=== PATIENT | male | born 1940 | race Caucasian/White ===

== ENCOUNTER 2017-08-28 22:05 | Emergency (ER) | payer MEDICARE, BC, OTHER ==
[2017-08-28 23:26] LABS: ADD MAN DIFF? NO
[2017-08-28 23:29] LABS: BASOPHILS % 0.2 % (0.0-2.0); EOSINOPHILS # 0.1 10^3/ul (0.0-0.5); EOSINOPHILS % 1.6 % (0.0-7.0); HEMATOCRIT 45.9 % (42.0-52.0); HEMOGLOBIN 15.6 g/dl (14.0-18.0); LYMPHOCYTES # 1.2 10^3/ul (0.8-2.9); LYMPHOCYTES % 15.1 % (15.0-51.0); MEAN CORPUSCULAR HEMOGLOBIN 29.5 pg (29.0-33.0); MEAN CORPUSCULAR VOLUME 86.9 fl (82.0-101.0); MEAN PLATELET VOLUME 10.6 fl (7.4-10.4); MONOCYTE # 0.7 10^3/ul (0.3-0.9); MONOCYTES % 8.5 % (0.0-11.0); NEUTROPHILS % 74.1 % (39.0-77.0); PLATELET COUNT 223 10^3/UL (140-415); RED BLOOD COUNT 5.28 10^6/ul (4.70-6.10); RED CELL DISTRIBUTION WIDTH 14.8 % (11.5-14.5)
[2017-08-28 23:29] LABS: WHITE BLOOD COUNT 8.1 10^3/ul (4.8-10.8)
[2017-08-28] MEDS: morphine 4 MG/ML VIAL IV (23:37)
[2017-08-28] MEDS: ONDANSETRON 4 MG INJ IV (23:37)
[2017-08-28] MEDS: SOD CHLORIDE 0.9% 1,000 ML IV (23:37)
[2017-08-28 23:57] LABS: ALANINE AMINOTRANSFERASE 41 IU/L (13-69); ALBUMIN 4.4 g/dl (3.3-4.9); ALBUMIN/GLOBULIN RATIO 1.41; ALKALINE PHOSPHATASE 60 IU/L (42-121); ANION GAP 15 (8-16); ASPARTATE AMINO TRANSFERASE 35 IU/L (15-46); BILIRUBIN,INDIRECT 0.8 mg/dl (0-1.1); BILIRUBIN,TOTAL 0.8 mg/dl (0.2-1.3); BLOOD UREA NITROGEN 20 mg/dl (7-20); CALCIUM 9.1 mg/dl (8.4-10.2); CARBON DIOXIDE 26 mmol/L (21-31); CHLORIDE 105 mmol/L (97-110); CREATININE 1.21 mg/dl (0.61-1.24); GLUCOSE 119 mg/dl (70-220); LIPASE 42 U/L (23-300); SODIUM 142 mmol/L (135-144); TOTAL PROTEIN 7.5 g/dl (6.1-8.1)
[2017-08-29 00:07] LABS: TROPONIN-I < 0.010 ng/ml (0.000-0.120)
[2017-08-29 01:34] LABS: ADD UMIC NO; UR ASCORBIC ACID NEGATIVE (NEGATIVE); UR BILIRUBIN (Dip) NEGATIVE (NEGATIVE); UR BLOOD (Dip) NEGATIVE (NEGATIVE); UR CLARITY CLEAR (CLEAR); UR COLOR STRAW (YELLOW); UR GLUCOSE (Dip) NEGATIVE (NEGATIVE); UR KETONES (Dip) NEGATIVE (NEGATIVE); UR LEUKOCYTE ESTERASE (Dip) NEGATIVE Leu/ul (NEGATIVE); UR NITRITE (Dip) NEGATIVE (NEGATIVE); UR SPECIFIC GRAVITY (Dip) 1.006 (1.003-1.030); UR TOTAL PROTEIN (Dip) NEGATIVE (NEGATIVE); UR UROBILINOGEN (Dip) NEGATIVE (NEGATIVE)
[2017-08-29] MEDS: METOCLOPRAMIDE 10 MG INJ IV (01:37)
[2017-08-29] MEDS: KETOROLAC 30 MG INJ IV (01:37)
[2017-08-29] MEDS: ONDANSETRON 4 MG INJ IV (01:37)
== END 2017-08-29 03:13 | disposition home or self-care (01) ==
LOC: E/R 22:05
DX: R10.9 Unspecified abdominal pain (principal); R11.0 Nausea
CPT/HCPCS: 36415; 74176; 80053; 81003; 83690; 84484; 85025; 96374; 96375; 96376; 99285-25

== ENCOUNTER 2018-01-11 15:55 | Inpatient (IN) | payer MEDICARE, BC ==
[2018-01-11 16:42] LABS: ADD MAN DIFF? NO
[2018-01-11] MEDS: morphine 2 MG INJ IV ×2 (16:45→17:05)
[2018-01-11] MEDS: ONDANSETRON 4 MG INJ IV ×2 (16:45→19:12)
[2018-01-11] MEDS: FAMOTIDINE 20 MG INJ IV (16:45)
[2018-01-11] MEDS: SOD CHLORIDE 0.9% 1,000 ML IV ×2 (16:47→22:39)
[2018-01-11 16:49] LABS: BASOPHIL # 0.1 10^3/ul (0.0-0.1); BASOPHILS % 0.3 % (0.0-2.0); EOSINOPHILS # 0.1 10^3/ul (0.0-0.5); EOSINOPHILS % 0.5 % (0.0-7.0); HEMATOCRIT 50.1 % (42.0-52.0); HEMOGLOBIN 16.8 g/dl (14.0-18.0); LYMPHOCYTES # 0.7 10^3/ul (0.8-2.9); LYMPHOCYTES % 4.3 % (15.0-51.0); MEAN CORPUSCULAR HEMOGLOBIN 29.1 pg (29.0-33.0); MEAN CORPUSCULAR HGB CONC 33.5 g/dl (32.0-37.0); MEAN CORPUSCULAR VOLUME 86.8 fl (82.0-101.0); MEAN PLATELET VOLUME 10.5 fl (7.4-10.4); MONOCYTE # 0.9 10^3/ul (0.3-0.9); MONOCYTES % 5.1 % (0.0-11.0); NEUTROPHIL # 15.2 10^3/ul (1.6-7.5); NEUTROPHILS % 89.4 % (39.0-77.0); PLATELET COUNT 270 10^3/UL (140-415); RED BLOOD COUNT 5.77 10^6/ul (4.70-6.10)
[2018-01-11 17:10] LABS: LACTIC ACID 2.6 mmol/L (0.5-2.0)
[2018-01-11] MEDS: SODIUM CHLORIDE 0.9% 1L BAG IV* (17:17)
[2018-01-11 17:21] LABS: INR 0.92; PROTIME 12.4 Sec (11.9-14.9)
[2018-01-11] MEDS: VANCOMYCIN 1 GM (PMX) 250 ML IVPB (17:21)
[2018-01-11 17:22] LABS: PARTIAL THROMBOPLASTIN TIME 26.7 Sec (23.0-35.0)
[2018-01-11] MEDS: METOCLOPRAMIDE 10 MG INJ IV (17:26)
[2018-01-11 17:54] LABS: ALANINE AMINOTRANSFERASE 33 IU/L (13-69); ALBUMIN 4.6 g/dl (3.3-4.9); ALBUMIN/GLOBULIN RATIO 1.53; ALKALINE PHOSPHATASE 84 IU/L (42-121); AMYLASE 76 U/L (11-123); ANION GAP 9 (5-13); ASPARTATE AMINO TRANSFERASE 26 IU/L (15-46); BLOOD UREA NITROGEN 22 mg/dl (7-20); CALCIUM 10.6 mg/dl (8.4-10.2); CARBON DIOXIDE 33 mmol/L (21-31); CHLORIDE 98 mmol/L (97-110); CREATININE 1.11 mg/dl (0.61-1.24); GLUCOSE 130 mg/dl (70-220); LIPASE 46 U/L (23-300); POTASSIUM 5.3 mmol/L (3.5-5.1); SODIUM 140 mmol/L (135-144); TOTAL PROTEIN 7.6 g/dl (6.1-8.1)
[2018-01-11 18:05] LABS: TROPONIN-I < 0.012 ng/ml (0.000-0.120)
[2018-01-11] MEDS: SOD CHLORIDE 0.9% 100 ML (18:05)
[2018-01-11] MEDS: IODIXANOL LOCM 100 ML BTL (18:05)
[2018-01-11] MEDS: KETOROLAC 30 MG INJ IV (19:11)
[2018-01-11] MEDS ORDERED: NACL 0.9% 3 ML SYG IV (20:00)
[2018-01-11] MEDS ORDERED: DOCUSATE SODIUM 100 MG CAP PO (20:00)
[2018-01-11] MEDS ORDERED: morphine 2 MG INJ IV (20:00)
[2018-01-11] MEDS ORDERED: BISACODYL (EC) 5 MG TAB PO (20:00)
[2018-01-11] MEDS: CEFEPIME 2GM/50 ML (PMX) 50 ML IVPB (21:10)
[2018-01-12 01:06] LABS: LACTIC ACID 1.5 mmol/L (0.5-2.0)
[2018-01-12] MEDS: SOD CHLORIDE 0.9% 1,000 ML IV ×2 (05:44→16:02)
[2018-01-12 06:06] LABS: ADD MAN DIFF? NO
[2018-01-12 06:09] LABS: WHITE BLOOD COUNT 11.1 10^3/ul (4.8-10.8)
[2018-01-12 06:09] LABS: BASOPHILS % 0.3 % (0.0-2.0); EOSINOPHILS # 0.1 10^3/ul (0.0-0.5); EOSINOPHILS % 1.2 % (0.0-7.0); HEMATOCRIT 40.2 % (42.0-52.0); HEMOGLOBIN 13.4 g/dl (14.0-18.0); LYMPHOCYTES # 0.6 10^3/ul (0.8-2.9); LYMPHOCYTES % 5.6 % (15.0-51.0); MEAN CORPUSCULAR HEMOGLOBIN 29.1 pg (29.0-33.0); MEAN CORPUSCULAR HGB CONC 33.3 g/dl (32.0-37.0); MEAN CORPUSCULAR VOLUME 87.4 fl (82.0-101.0); MEAN PLATELET VOLUME 10.4 fl (7.4-10.4); MONOCYTE # 1.2 10^3/ul (0.3-0.9); NEUTROPHIL # 9.1 10^3/ul (1.6-7.5); NEUTROPHILS % 81.5 % (39.0-77.0); PLATELET COUNT 224 10^3/UL (140-415); RED CELL DISTRIBUTION WIDTH 14.3 % (11.5-14.5)
[2018-01-12 06:23] LABS: ALANINE AMINOTRANSFERASE 57 IU/L (13-69); ALBUMIN 3.4 g/dl (3.3-4.9); ALBUMIN/GLOBULIN RATIO 1.54; ALKALINE PHOSPHATASE 70 IU/L (42-121); ANION GAP 4 (5-13); ASPARTATE AMINO TRANSFERASE 45 IU/L (15-46); BILIRUBIN,INDIRECT 0.9 mg/dl (0-1.1); BILIRUBIN,TOTAL 0.9 mg/dl (0.2-1.3); BLOOD UREA NITROGEN 22 mg/dl (7-20); CALCIUM 8.4 mg/dl (8.4-10.2); CARBON DIOXIDE 28 mmol/L (21-31); CHLORIDE 107 mmol/L (97-110); CREATININE 1.06 mg/dl (0.61-1.24); GLUCOSE 100 mg/dl (70-220); MAGNESIUM 2.2 mg/dl (1.7-2.5); POTASSIUM 4.7 mmol/L (3.5-5.1); SODIUM 139 mmol/L (135-144); TOTAL PROTEIN 5.6 g/dl (6.1-8.1)
[2018-01-12 06:27] LABS: HEMOGLOBIN A1C 5.1 % (0-5.9)
[2018-01-12 06:28] LABS: LACTIC ACID 1.1 mmol/L (0.5-2.0)
[2018-01-12 06:52] LABS: THYROID STIMULATING HORMONE 0.446 MIU/L (0.465-4.680)
[2018-01-12] MEDS: KETOROLAC 15 MG INJ IV (13:47)
[2018-01-12] MEDS: ONDANSETRON 4 MG INJ IV (13:48)
[2018-01-12] MEDS: IOHEXOL 300MG/ML 150 ML BTL ×2 (14:53)
[2018-01-12] MEDS: ACETAMINOPHEN 325 MG TAB PO (23:49)
[2018-01-13] MEDS: SOD CHLORIDE 0.9% 1,000 ML IV ×2 (01:59→10:47)
[2018-01-13 06:06] LABS: ADD MAN DIFF? NO
[2018-01-13 06:12] LABS: BASOPHILS % 0.3 % (0.0-2.0); EOSINOPHILS # 0.2 10^3/ul (0.0-0.5); EOSINOPHILS % 1.9 % (0.0-7.0); HEMATOCRIT 42.9 % (42.0-52.0); HEMOGLOBIN 14.3 g/dl (14.0-18.0); MEAN CORPUSCULAR HEMOGLOBIN 29.6 pg (29.0-33.0); MEAN CORPUSCULAR HGB CONC 33.3 g/dl (32.0-37.0); MEAN CORPUSCULAR VOLUME 88.8 fl (82.0-101.0); MEAN PLATELET VOLUME 10.7 fl (7.4-10.4); MONOCYTES % 10.4 % (0.0-11.0); NEUTROPHIL # 7.1 10^3/ul (1.6-7.5); NEUTROPHILS % 76.2 % (39.0-77.0); PLATELET COUNT 227 10^3/UL (140-415); RED BLOOD COUNT 4.83 10^6/ul (4.70-6.10); RED CELL DISTRIBUTION WIDTH 14.3 % (11.5-14.5)
[2018-01-13 06:12] LABS: WHITE BLOOD COUNT 9.3 10^3/ul (4.8-10.8)
[2018-01-13 07:04] LABS: MAGNESIUM 2.2 mg/dl (1.7-2.5)
[2018-01-13 07:11] LABS: ANION GAP 9 (5-13); BLOOD UREA NITROGEN 20 mg/dl (7-20); CALCIUM 9.1 mg/dl (8.4-10.2); CARBON DIOXIDE 27 mmol/L (21-31); CHLORIDE 107 mmol/L (97-110); CREATININE 1.09 mg/dl (0.61-1.24); GLUCOSE 82 mg/dl (70-220); POTASSIUM 4.5 mmol/L (3.5-5.1); SODIUM 143 mmol/L (135-144)
[2018-01-13] MEDS: ACETAMINOPHEN 325 MG TAB PO (10:47)
== END 2018-01-13 14:50 | disposition home or self-care (01) | DRG 390 ==
LOC: E/R 15:55 → TEL 19:49
DX: K56.609 Unspecified intestinal obstruction, unspecified as to partial versus complete obstruction (principal); E78.5 Hyperlipidemia, unspecified
CPT/HCPCS: 36415; 71045; 74177; 74250; 80048; 80053; 82150; 83036; 83605; 83690; 83735; 84443; 84484; 85025; 85610; 85730; 87040; 87045; 90686; 93005; 96374; 96375; 96376; 99291-25

== ENCOUNTER 2018-09-01 20:07 | Inpatient (IN) | payer MEDICARE, BC ==
[2018-09-01 21:06] LABS: ADD MAN DIFF? NO
[2018-09-01 21:08] LABS: BASOPHILS % 0.3 % (0.0-2.0); EOSINOPHILS # 0.1 10^3/ul (0.0-0.5); HEMATOCRIT 46.3 % (42.0-52.0); HEMOGLOBIN 15.2 g/dl (14.0-18.0); LYMPHOCYTES # 0.9 10^3/ul (0.8-2.9); MEAN CORPUSCULAR HEMOGLOBIN 27.9 pg (29.0-33.0); MEAN CORPUSCULAR HGB CONC 32.8 g/dl (32.0-37.0); MEAN CORPUSCULAR VOLUME 85.1 fl (82.0-101.0); MEAN PLATELET VOLUME 10.5 fl (7.4-10.4); MONOCYTE # 0.6 10^3/ul (0.3-0.9); MONOCYTES % 4.9 % (0.0-11.0); NEUTROPHIL # 10.8 10^3/ul (1.6-7.5); NEUTROPHILS % 86.2 % (39.0-77.0); PLATELET COUNT 284 10^3/UL (140-415); RED BLOOD COUNT 5.44 10^6/ul (4.70-6.10); RED CELL DISTRIBUTION WIDTH 15.2 % (11.5-14.5)
[2018-09-01 21:08] LABS: WHITE BLOOD COUNT 12.5 10^3/ul (4.8-10.8)
[2018-09-01 21:14] LABS: ALANINE AMINOTRANSFERASE 36 IU/L (13-69); ALBUMIN 4.4 g/dl (3.3-4.9); ALBUMIN/GLOBULIN RATIO 1.37; ALKALINE PHOSPHATASE 93 IU/L (42-121); ANION GAP 10 (5-13); ASPARTATE AMINO TRANSFERASE 44 IU/L (15-46); BILIRUBIN,INDIRECT 0.7 mg/dl (0-1.1); BILIRUBIN,TOTAL 0.7 mg/dl (0.2-1.3); BLOOD UREA NITROGEN 26 mg/dl (7-20); CALCIUM 9.9 mg/dl (8.4-10.2); CARBON DIOXIDE 26 mmol/L (21-31); CHLORIDE 105 mmol/L (97-110); CREATININE 1.26 mg/dl (0.61-1.24); GLUCOSE 140 mg/dl (70-220); LIPASE 43 U/L (23-300); POTASSIUM 4.4 mmol/L (3.5-5.1); SODIUM 141 mmol/L (135-144); TOTAL PROTEIN 7.6 g/dl (6.1-8.1)
[2018-09-01] MEDS: ONDANSETRON 4 MG INJ IV (21:43)
[2018-09-01] MEDS: HYDROmorphONE 1 MG/ML SYG IV (21:43)
[2018-09-01] MEDS: SOD CHLORIDE 0.9% 1,000 ML IV (21:43)
[2018-09-01] MEDS ORDERED: SOD CHLORIDE 0.9% 1,000 ML IV (23:48)
[2018-09-02] MEDS ORDERED: NACL 0.9% 3 ML SYG IV
[2018-09-02] MEDS ORDERED: ONDANSETRON 4 MG INJ IV
[2018-09-02] MEDS: ACETAMINOPHEN 325 MG TAB PO (00:22)
[2018-09-02] MEDS: ONDANSETRON 4 MG INJ IV ×3 (00:25→17:43)
[2018-09-02] MEDS: METOCLOPRAMIDE 10 MG INJ IV (00:25)
[2018-09-02] MEDS: morphine 2 MG INJ IV ×2 (00:26→09:33)
[2018-09-02] MEDS: ENOXAPARIN 80 MG/0.8 ML SYG SC (00:46)
[2018-09-02 01:43] LABS: INR 0.94; PROTIME 12.7 Sec (11.9-14.9)
[2018-09-02 01:44] LABS: PARTIAL THROMBOPLASTIN TIME 28.3 Sec (23.0-35.0)
[2018-09-02] MEDS: SOD CHLORIDE 0.9% 1,000 ML IV ×3 (03:00→17:49)
[2018-09-02 06:00] LABS: ADD MAN DIFF? NO
[2018-09-02 06:04] LABS: ABNORMAL IP MESSAGE 1; BASOPHIL # 0.1 10^3/ul (0.0-0.1); BASOPHILS % 0.5 % (0.0-2.0); EOSINOPHILS # 0.1 10^3/ul (0.0-0.5); EOSINOPHILS % 0.4 % (0.0-7.0); HEMATOCRIT 41.9 % (42.0-52.0); LYMPHOCYTES # 0.4 10^3/ul (0.8-2.9); LYMPHOCYTES % 2.7 % (15.0-51.0); MEAN CORPUSCULAR HEMOGLOBIN 28.4 pg (29.0-33.0); MEAN CORPUSCULAR HGB CONC 33.4 g/dl (32.0-37.0); MEAN PLATELET VOLUME 10.2 fl (7.4-10.4); MONOCYTE # 1.4 10^3/ul (0.3-0.9); MONOCYTES % 10.4 % (0.0-11.0); NEUTROPHIL # 11.8 10^3/ul (1.6-7.5); NEUTROPHILS % 85.7 % (39.0-77.0); PLATELET COUNT 251 10^3/UL (140-415); POSITIVE DIFF @See below; RED BLOOD COUNT 4.93 10^6/ul (4.70-6.10); RED CELL DISTRIBUTION WIDTH 15.1 % (11.5-14.5)
[2018-09-02 06:04] LABS: WHITE BLOOD COUNT 13.8 10^3/ul (4.8-10.8)
[2018-09-02 06:38] LABS: ALANINE AMINOTRANSFERASE 43 IU/L (13-69); ALBUMIN 3.9 g/dl (3.3-4.9); ALBUMIN/GLOBULIN RATIO 1.62; ALKALINE PHOSPHATASE 83 IU/L (42-121); ANION GAP 10 (5-13); ASPARTATE AMINO TRANSFERASE 38 IU/L (15-46); BLOOD UREA NITROGEN 24 mg/dl (7-20); CARBON DIOXIDE 23 mmol/L (21-31); CHLORIDE 107 mmol/L (97-110); CHOLESTEROL 157 mg/dl (100-200); CREATININE 1.05 mg/dl (0.61-1.24); GLUCOSE 121 mg/dl (70-220); HDL CHOLESTEROL 51 mg/dl (31-75); LDL CHOLESTEROL,CALCULATED 92 mg/dl; MAGNESIUM 1.9 mg/dl (1.7-2.5); SODIUM 140 mmol/L (135-144); TOTAL PROTEIN 6.3 g/dl (6.1-8.1); TRIGLYCERIDES 72 mg/dl (0-149)
[2018-09-02 07:30] LABS: THYROID STIMULATING HORMONE 0.328 MIU/L (0.465-4.680)
[2018-09-02 07:44] LABS: HEMOGLOBIN A1C 5.5 % (0-5.9)
[2018-09-02] MEDS: metroNIDAZOLE 500 MG/NS (PMX) 100 ML IVPB ×2 (14:16→23:39)
[2018-09-02] MEDS: CIPROFLOXACIN 400MG/D5W 200 ML IVPB ×2 (15:29→22:07)
[2018-09-02] MEDS ORDERED: ACETAMINOPHEN 325 MG TAB PO ×2 (17:00)
[2018-09-02] MEDS: FAMOTIDINE 20 MG TAB PO ×2 (17:22→21:00)
[2018-09-02] MEDS: KETOROLAC 30 MG INJ IV (17:23)
[2018-09-03] MEDS: ONDANSETRON 4 MG INJ IV ×2 (03:13→18:14)
[2018-09-03] MEDS: KETOROLAC 30 MG INJ IV ×2 (03:18→18:14)
[2018-09-03 05:32] LABS: ADD MAN DIFF? NO
[2018-09-03 05:34] LABS: BASOPHILS % 0.3 % (0.0-2.0); EOSINOPHILS # 0.1 10^3/ul (0.0-0.5); EOSINOPHILS % 1.6 % (0.0-7.0); HEMATOCRIT 37.9 % (42.0-52.0); HEMOGLOBIN 12.7 g/dl (14.0-18.0); LYMPHOCYTES # 0.8 10^3/ul (0.8-2.9); LYMPHOCYTES % 10.7 % (15.0-51.0); MEAN CORPUSCULAR HEMOGLOBIN 28.2 pg (29.0-33.0); MEAN CORPUSCULAR HGB CONC 33.5 g/dl (32.0-37.0); MEAN PLATELET VOLUME 10.1 fl (7.4-10.4); MONOCYTE # 1.1 10^3/ul (0.3-0.9); MONOCYTES % 14.1 % (0.0-11.0); NEUTROPHIL # 5.6 10^3/ul (1.6-7.5); NEUTROPHILS % 72.9 % (39.0-77.0); PLATELET COUNT 233 10^3/UL (140-415); RED BLOOD COUNT 4.51 10^6/ul (4.70-6.10); RED CELL DISTRIBUTION WIDTH 15.3 % (11.5-14.5)
[2018-09-03 05:34] LABS: WHITE BLOOD COUNT 7.7 10^3/ul (4.8-10.8)
[2018-09-03 05:58] LABS: ANION GAP 6 (5-13); BLOOD UREA NITROGEN 19 mg/dl (7-20); CALCIUM 8.6 mg/dl (8.4-10.2); CARBON DIOXIDE 25 mmol/L (21-31); CHLORIDE 109 mmol/L (97-110); CREATININE 1.18 mg/dl (0.61-1.24); GLUCOSE 89 mg/dl (70-220); POTASSIUM 3.7 mmol/L (3.5-5.1); SODIUM 140 mmol/L (135-144)
[2018-09-03] MEDS: metroNIDAZOLE 500 MG/NS (PMX) 100 ML IVPB ×3 (06:09→21:42)
[2018-09-03 07:34] LABS: FREE T4 (FREE THYROXINE) 1.08 ng/dl (0.78-2.44)
[2018-09-03] MEDS: SOD CHLORIDE 0.9% 1,000 ML IV ×2 (08:47→15:56)
[2018-09-03] MEDS: CIPROFLOXACIN 400MG/D5W 200 ML IVPB ×2 (08:47→20:31)
[2018-09-03] MEDS: FAMOTIDINE 20 MG TAB PO ×2 (08:48→09:00)
[2018-09-03] MEDS: ENOXAPARIN 40 MG/0.4 ML SYG SC (09:03)
[2018-09-03] MEDS: FAMOTIDINE 20 MG INJ IV (11:59)
[2018-09-04] MEDS: metroNIDAZOLE 500 MG/NS (PMX) 100 ML IVPB ×2 (05:30→14:00)
[2018-09-04] MEDS: SOD CHLORIDE 0.9% 1,000 ML IV (05:30)
[2018-09-04 05:59] LABS: ADD MAN DIFF? NO
[2018-09-04 06:04] LABS: BASOPHILS % 0.3 % (0.0-2.0); EOSINOPHILS # 0.2 10^3/ul (0.0-0.5); EOSINOPHILS % 1.9 % (0.0-7.0); HEMATOCRIT 38.6 % (42.0-52.0); HEMOGLOBIN 12.6 g/dl (14.0-18.0); LYMPHOCYTES # 0.9 10^3/ul (0.8-2.9); LYMPHOCYTES % 10.2 % (15.0-51.0); MEAN CORPUSCULAR HEMOGLOBIN 27.8 pg (29.0-33.0); MEAN CORPUSCULAR HGB CONC 32.6 g/dl (32.0-37.0); MEAN CORPUSCULAR VOLUME 85.2 fl (82.0-101.0); MEAN PLATELET VOLUME 10.2 fl (7.4-10.4); MONOCYTES % 11.9 % (0.0-11.0); NEUTROPHIL # 6.5 10^3/ul (1.6-7.5); NEUTROPHILS % 74.9 % (39.0-77.0); PLATELET COUNT 256 10^3/UL (140-415); RED BLOOD COUNT 4.53 10^6/ul (4.70-6.10); RED CELL DISTRIBUTION WIDTH 15.2 % (11.5-14.5)
[2018-09-04 06:04] LABS: WHITE BLOOD COUNT 8.6 10^3/ul (4.8-10.8)
[2018-09-04 06:24] LABS: ANION GAP 7 (5-13); BLOOD UREA NITROGEN 18 mg/dl (7-20); CALCIUM 8.9 mg/dl (8.4-10.2); CARBON DIOXIDE 26 mmol/L (21-31); CHLORIDE 109 mmol/L (97-110); CREATININE 1.19 mg/dl (0.61-1.24); GLUCOSE 89 mg/dl (70-220); POTASSIUM 3.9 mmol/L (3.5-5.1); SODIUM 142 mmol/L (135-144)
[2018-09-04] MEDS: ACETAMINOPHEN 325 MG TAB PO ×2 (08:43→15:26)
[2018-09-04] MEDS: CIPROFLOXACIN 400MG/D5W 200 ML IVPB (08:43)
[2018-09-04] MEDS: ENOXAPARIN 40 MG/0.4 ML SYG SC (09:36)
[2018-09-04] MEDS: FAMOTIDINE 20 MG INJ IV (09:37)
[2018-09-04] MEDS: TAMSULOSIN (SR) 0.4 MG CAP PO (10:49)
[2018-09-04] MEDS ORDERED: CYPROHEPTADINE 4 MG TAB PO (21:00)
[2018-09-04] MEDS ORDERED: ATORVASTATIN 40 MG TAB PO (21:00)
[2018-09-04] MEDS ORDERED: TAMSULOSIN (SR) 0.4 MG CAP PO (21:00)
== END 2018-09-04 16:57 | disposition home or self-care (01) | DRG 390 ==
LOC: E/R 20:07 → 6WM 23:49
DX: K56.600 Partial intestinal obstruction, unspecified as to cause (principal); G62.9 Polyneuropathy, unspecified; E78.5 Hyperlipidemia, unspecified; N28.9 Disorder of kidney and ureter, unspecified; N40.1 Benign prostatic hyperplasia with lower urinary tract symptoms; R33.8 Other retention of urine; I10 Essential (primary) hypertension; Z88.2 Allergy status to sulfonamides; Z96.641 Presence of right artificial hip joint
CPT/HCPCS: 71045; 74177; 74250; 80048; 80053; 80061; 83036; 83690; 83735; 84439; 84443; 85025; 85610; 85730; 87075; 93971; 96374; 96375; 97161; 99285-25